=== PATIENT | female | born 1985 ===

== ENCOUNTER 2018-03-22 19:50 | Emergency (ER) | payer OTHER ==
[~2018-03-22] VITALS: Ht 175.3 cm; Wt 61.4 kg
[~2018-03-22 19:50] MED LIST: IBU600 MG PO; MOTRIN 600600 MG/TAB PO; PERCOCET 325 MG1 TA2 PO; PRENATAL1 TA1 PO
[2018-03-22 19:54] VITALS: BP 137/98; TEMP 97.9
[2018-03-22 21:11] VITALS: PULSE 66
== END 2018-03-22 21:12 | disposition home or self-care (01) ==
LOC: COL.ER 19:50
DX: S62.304A Unspecified fracture of fourth metacarpal bone, right hand, initial encounter for closed fracture (principal); W01.0XXA Fall on same level from slipping, tripping and stumbling without subsequent striking against object, initial encounter; Y92.002 Bathroom of unspecified non-institutional (private) residence as the place of occurrence of the external cause
CPT/HCPCS: Q4021

== ENCOUNTER 2023-03-13 10:18 | Emergency (ER) | payer BC ==
[~2023-03-13] VITALS: Ht 175.3 cm; Wt 63.6 kg
[~2023-03-13 10:18] MED LIST changes: +CEPHALEXIN500 M1 PO; +VANTIN 200200 MG/TAB PO; +ZOFRAN ODT4 MG PO
[2023-03-13 10:24] VITALS: TEMP 97.3
[2023-03-13 11:20] LABS: COLLECTION METHOD CLEAN CATCH
[2023-03-13 11:30] LABS: BASO % 0.6 % (0.0-2.0); EOS # 0.4 K/mm3 (0.0-0.7); EOS % 5.2 % (0.0-4.0); GRAN # 4.5 K/mm3 (1.4-6.5); GRAN % 65.3 % (42.2-75.2); HEMATOCRIT 38.1 % (37.0-47.0); HEMOGLOBIN 12.5 g/dl (12.5-16.0); LYMPH # 1.4 K/mm3 (1.2-3.4); LYMPH % 19.8 % (20.0-51.0); MEAN CELL VOLUME 91 fl (80.0-100.0); MEAN CORPUSCULAR HEMOGLOBIN 30 pg (27-31); MEAN CORPUSCULAR HGB CONC 33 g/dl (33.0-37.0); MEAN PLATELET VOLUME 10.5 fl (7.4-10.4); MONO # 0.6 K/mm3 (0.1-0.6); MONO % 8.8 % (1.7-9.3); PLATELET COUNT 245 K/mm3 (130-400); RED BLOOD COUNT 4.19 M/mm3 (4.10-5.30); REDCELL DISTRIBUTION WIDTH-CV 12.1 % (11.5-14.5)
[2023-03-13 11:43] LABS: SQUAMOUS EPITHELIAL 0-2 /hpf (0-10); URINE BACTERIA Rare /hpf (NONE SEEN); URINE RBC None Seen /hpf (0-2)
[2023-03-13 11:45] LABS: URINE APPEARANCE Clear (CLEAR/HAZY); URINE BLOOD Negative (NEGATIVE); URINE COLOR Yellow (YELLOW); URINE GLUCOSE Negative (NEGATIVE); URINE KETONE Negative (NEGATIVE); URINE NITRATE Negative (NEGATIVE); URINE PROTEIN(semi-quant) Negative (NEGATIVE); URINE UROBILINOGEN 0.2 (NEGATIVE)
[2023-03-13 11:50] LABS: ALBUMIN 3.6 gm/dL (3.5-5.0); BILIRUBIN,TOTAL 0.3 mg/dL (0.2-1.2); CALCIUM 9.7 mg/dL (8.4-10.2); CREATININE, serum 1.05 mg/dL (0.57-1.11); TOTAL PROTEIN 7.9 gm/dL (6.2-8.1)
[2023-03-13 12:07] LABS: POTASSIUM 4.4 mmol/L (3.5-4.5)
[2023-03-13 13:45] VITALS: BP 121/93; PULSE 82
[2023-03-14] MEDS ORDERED: ESTARYLLA 35 MC1 TAB PO (10:38)
[2023-03-14] MEDS ORDERED: NORCO 325 MG-51 TAB PO (16:02)
== END 2023-03-13 13:45 | disposition home or self-care (01) ==
LOC: COL.ER 10:18
PROVIDERS: Emergency Medicine
DX: N13.2 Hydronephrosis with renal and ureteral calculous obstruction (principal)
CPT/HCPCS: J1885; J7030; Q9967

== ENCOUNTER 2023-03-14 09:49 | Day surgery (SDC) | payer BC ==
[2023-03-14] VITALS (10 sets, daily range): BP systolic 126–138; BP diastolic 69–95; PULSE 60–102; TEMP 97.3–98.4
[~2023-03-14] VITALS: Ht 175.3 cm; Wt 63.6 kg
--- NOTE | 2023-03-14 09:32 | NUR ---
[id number]. BEAUCHAMP OFFICE CALLED STATING THAT HE WANTED TO DIRECT ADMIT PATIENT FROM HIS OFFICE FOR PAIN CONTROL FOR LEFT KIDNEY STONE. PT. WILL BE OUTPATIENT STATUS AND HAVE PROCEDURE DONE AT APPROXIMATELY 1530. DR. BEAUCHAMP WILL BE THE ADMITTING PHYSICIAN.
[2023-03-14] MEDS ORDERED: ESTARYLLA 35 MC1 TAB PO (10:38)
[2023-03-14] MEDS ORDERED: NORCO 325 MG-51 TAB PO (16:02)
--- NOTE | 2023-03-14 20:00 | NUR ---
PATIENT DISCHARGED, LEAVING WITH SPOUSE. EXHIBITED GOOD UNDERSTANDING OF DISCHARGE INSTRUCTIONS, IV WAS REMOVED AND CATHETER INTACT. PATIENT STATED HAD MEDS AT HOME TO ADDRESS PAIN R/T KIDNEY STONES IN THE EVENT HER SPOUSE COULD NOT MAKE IT TO PHARMACY BEFORE IT CLOSED. PRIOR TO DISCHARGE, SHE RATED HER PAIN 3/10 AND WAS EATING AND VOIDING WITH NO COMPLICATIONS. PATIENT WAS AFEBRILE WITH VSS WNL.
== END 2023-03-14 20:15 | disposition home or self-care (01) ==
LOC: SDCO 09:49 → MEDICAL 09:49 → SDCO 20:15
DX: N20.1 Calculus of ureter (principal)
CPT/HCPCS: OP; J1885; J2270; J2405; J2704; J7030